=== PATIENT | female | born 1930 | race Caucasian/White ===

== ENCOUNTER 2019-01-13 10:26 | Inpatient (IN) | payer MEDICARE ==
[2019-01-13 11:31] LABS: Hemoglobin 12.2 g/dL (12.0-16.0); Mean Corpuscular HGB CONC 34.8 g/dL (32.0-36.0); Mean Corpuscular Hemoglobin 33.6 pg (27.0-31.0); Mean Corpuscular Volume 96.6 fL (78.0-98.0); Mean Platelet Volume 7.7 fL (7.4-10.4); Platelet Count 139 thou/uL (130-400); RBC Distribution Width 12.2 % (11.5-14.5); Red Blood Cell (RBC) Count 3.63 mill/uL (4.20-5.40); White Blood Cell (WBC) Count 10.7 thou/uL (4.8-10.8)
--- NOTE | 2019-01-13 11:31 | RAD ---
Chest AP view INDICATION: Altered mental status, sepsis and fall COMPARISON: July 19, 2015 FINDINGS: Lungs:Stable chronic lung changes Cardiac silhouette:Mild cardiomegaly Pulmonary vasculature:Normal Pleural spaces:No pleural effusion or pneumothorax is demonstrated. Upper abdomen:No abnormality seen. Osseous structures: No acute osseous abnormality. Additional findings:There is been interval placement of a loop recorder overlying the left chest wall . IMPRESSION: Mild cardiomegaly without evidence of cardiac decompensation. Stable chronic lung changes .
[2019-01-13 11:45] LABS: Band 15 % (5-11); MDiff Complete? YES; Metamyelocyte 2 % (0-0); Monocytes 1 % (0-10); Neutrophil 82 % (42-75); Platelet Morphology Comment Appears Adequate; RBC Morphology Normal
[2019-01-13 11:57] LABS: ALT (SGPT) 11 U/L (8-55); AST (SGOT) 26 U/L (5-34); Alkaline Phosphatase 125 U/L (40-110); Anion Gap 17 mmol/L (10-20); BUN (Urea Nitrogen) 28 mg/dL (9.8-20.1); Bilirubin, Total 1.2 mg/dL (0.2-1.2); Calc. Creatinine Clearance 0 mL/min (70-130); Calcium 9.2 mg/dL (7.8-10.44); Carbon Dioxide 21 mmol/L (23-31); Chloride 102 mmol/L (98-107); Estimated GFR-MDRD 24; Globulin 3.2 g/dL (2.4-3.5); Glucose 148 mg/dL (83-110); Potassium 4.1 mmol/L (3.5-5.1); Protein, Total 7.2 g/dL (6.0-8.3); Sodium 136 mmol/L (136-145)
[2019-01-13 11:59] LABS: CK (CPK) 106 U/L (29-168); Lipase 11 U/L (8-78)
[2019-01-13 12:05] LABS: Bacteria/HPF 4+ HPF (None Seen); Bilirubin Negative (Negative); Blood, Urine 2+ (Negative); Clarity Turbid (Clear); Glucose, Urine (Dipstick) Normal (Negative); Leukocyte 500 Leu/uL (Negative); Nitrite 2+ (Negative); Protein, Urine (Dipstick) 70 mg/dL (Neg-Trace); RBC/HPF Greater than 50 HPF (0-3); Squamous Epithelial 0-3 HPF (0-3); Urobilinogen Normal mg/dL (Less than 2); WBC/HPF Greater than 50 HPF (0-3)
[2019-01-13] MEDS ORDERED: Aspirin Chewable 81 MG TAB ONE (12:12)
[2019-01-13] MEDS ORDERED: Cefepime 2 GM VIAL ONE (12:12)
[2019-01-13 12:22] LABS: CKMB 0.9 ng/mL (0-6.6)
--- NOTE | 2019-01-13 12:43 | CT ---
CT Brain WO Con: 01/13/2019 11:32 AM CLINICAL HISTORY: Fall. IMAGING TECHNIQUE: Multiple CT images were obtained of the brain without IV contrast. COMPARISON: Prior exam dated March 12, 2016 FINDINGS: Brain: No acute infarct, hemorrhage or hydrocephalus is present. There is moderate chronic small ves adriana white matter ischemic change. Ventricles: Normal. No hydrocephalus.. Skull: Intact.. Visualized Paranasal sinuses: Clear.. Mastoid air cells:Clear. Extracranial soft tissues:Normal. IMPRESSION: No acute intracranial abnormality.
[2019-01-13 14:56] LABS: Lactic Acid 1.2 mmol/L (0.5-2.2)
[2019-01-13 15:00] LABS: Troponin I 0.097 ng/mL (< 0.028)
--- NOTE | 2019-01-13 23:35 | HP ---
CHIEF COMPLAINT: Feeling dizzy and weak, apparently yesterday she lost her balance. This was at night actually and she sat down on the floor and she was not able to get up and she had to spend all night on the floor. This morning, her nephew checked on her and he found her on the ground, but she was responsive and she was taken to the emergency room by EMS for further evaluation and help. She denied any a.m. fever. No chills. No nausea. No vomiting. No diarrhea. No abdominal pain. No chest pain. No shortness of breath, but for the last few days, she felt somewhat dizzy and weak. She did not go to her doctor, her primary doctor is Dr. Neri and surrogate decision maker is patient's son Pardeep, she was found to have fever, high fever in the emergency room of 104 and was found to be septic and she is getting admitted to the hospital for further management. She was started on cefepime and Levaquin by the emergency room physician. PAST MEDICAL HISTORY: Positive for: 1. Frequent UTIs. 2. History of hypertension. 3. Hypothyroidism. 4. Depression. PAST SURGICAL HISTORY: Hysterectomy. SOCIAL HISTORY: She denies any alcohol use, cigarette smoking, or any illicit drug use. FAMILY HISTORY: Mother of old age and father of [place] in his 70s. REVIEW OF SYSTEMS: She has frequent falls and she has 8-pound loss in the last several months, maybe 6. She has some constipation and otherwise all systems were reviewed and they were negative. PHYSICAL EXAMINATION: VITAL SIGNS: Blood pressure is 103/49, pulse is 97, O2 saturation is 100. HEENT: Her head is atraumatic and normocephalic. Eyes PERRLA. Sclerae are nonicteric. Oral mucosa is dry. NECK: Supple. LUNGS: Clear. HEART: S1, S2 normal. There is a systolic murmur at the left sternal border, approximately 3/6, mostly audible. ABDOMEN: Soft, nontender. Bowel sounds are present. No organomegaly. EXTREMITIES: No clubbing, cyanosis, or edema. NEUROLOGIC: She is able to answer all my questions properly. She follows my commands. She moves all 4 extremities. There is no any motor or sensory deficits. Cranial nerves are intact. LABORATORY DATA: Labs showed white count of 10.7, hemoglobin of 12.2, hematocrit 35.0, platelet count is 139,000. Sodium of 136, potassium 4.1, chloride 102, CO2 of 21, BUN 20, creatinine 1.99. Lactic acid 2.3 and repeated level is 1.2, glucose 148, alkaline phosphatase 125. Normal liver function tests with normal total bilirubin, AST and ALT. Ammonia is 15. CK 106, CK-MB 109, troponin I 0.047 and 0.097. BNP is 753.3. The rest of chemistry is within normal limits. TSH is , lipase 11. Urinalysis showed clarity turbid and 70 of protein, 20 of ketones, blood 2+, nitrates 2+, 500 leukocyte esterases, rbc's greater than 50 and wbc's greater than 50, 4+ bacteria. IMAGING: Chest x-ray was reviewed personally by me. It showed mild cardiomegaly without evidence of cardiac decompensation. She has some chronic lung changes on this x-ray. CT of the brain personally reviewed by me showed no acute infarct, no hemorrhage. There was some moderate chronic small-vessel white matter ischemic changes, otherwise was within normal limits. Electrocardiogram showed sinus tachycardia with questionable Q-waves in V1, V2 and V3. IMPRESSION: 1. Generalized weakness and dizziness for the last few days. Rule out subacute myocardial infarction. Her troponins are slightly elevated. We will get a 3rd set. We will keep her on aspirin. 2. Renal insufficiency. We do not know whether it is chronic or acute. We do not have any records on this lady in this hospital. We will start her on close observation. I am not planning to give her any fluids for now since her. 3. Brain natriuretic peptide is elevated. 4. Hypothyroidism. 5. Sepsis. Her temperature was up to 104. In the emergency room, she was started on Levaquin and cefepime. We will continue cefepime 1 g q.12 hours. We will check BMP tomorrow morning. We will do echocardiogram and we will continue her on levothyroxine as soon as we have the knowledge about the dose. 6. She will have deep venous thrombosis prophylaxis with sequential compression devices. 7. She is DO NOT RESUSCITATE. Job ID: [id number]
[2019-01-14] MEDS: Cefepime 1 GM in Sodium Chloride 0.9% 100 ML IVPB SCH ×2 (01:29→15:01)
[2019-01-14] MEDS ORDERED: Ondansetron ODT 4 MG TAB PO PRN (03:35)
[2019-01-14] MEDS ORDERED: Ondansetron PF 4 MG/2 ML Vial IVP PRN (03:35)
[2019-01-14] MEDS: Acetaminophen 325 MG TAB PO PRN ×2 (04:24→21:59)
[2019-01-14] MEDS: Sodium Chloride 0.9% 1,000 ML IV SCH ×2 (04:24→15:02)
--- NOTE | 2019-01-14 12:38 | PRG ---
DATE OF SERVICE: SUBJECTIVE: The patient is seen and examined at bedside. Extended family is present in the room during my visit. They are concerned about her falling multiple times during last 3 years. Those falls were not witnessed. The patient states that this was mainly balance problem during those episodes. Also, she says she does not have much appetite and she did not eat breakfast. She feels somewhat better. OBJECTIVE: VITAL SIGNS: Blood pressure is 125/57, pulse is 88, temperature is 98.6, respiratory rate is 21, O2 saturation is 92% on room air. HEENT: Head is atraumatic and normocephalic. Eyes are PERRLA. Sclerae are nonicteric. Oral mucosa is dry. NECK: Supple. LUNGS: Clear. HEART: S1 and S2 normal. There is a systolic murmur 3/6 at the left sternal border. ABDOMEN: Soft, nontender, nondistended. Bowel sounds are present. No organomegaly. EXTREMITIES: No clubbing, cyanosis, or edema. NEUROLOGIC: She follows my commands. She moves all 4 extremities. There are no any motor deficits. LABORATORY DATA: Pending. Troponin second set 0.097 and third set 0.100. Microbiology; urine culture, presumptive Escherichia coli. Two blood cultures, Escherichia coli. IMPRESSION: 1. Generalized weakness and dizziness with a recent fall 2 days ago. 2. Renal insufficiency. 3. Sepsis with Escherichia coli. Temperature down to 101 last night and normal this morning on cefepime. 4. Hypothyroidism. 5. Frequent falls. 6. Memory problems. PLAN: We will continue cefepime. We will get PT and OT. Continue IV fluids started by the third shift lieutenant MD. She shows some orthostatic hypotension. We are going to get renal ultrasound and MRI of the brain. Family is requesting neurology consultation for her frequent falls and memory problems. We will await until we have MRI results on her brain and we will obtain medical records from her primary care physician. Job ID: [id number]
[2019-01-14 12:47] LABS: #Lymphocytes 0.3 thou/uL (1.20-3.40); #Monocytes 0.6 thou/uL (0.11-0.59); #Neutrophils 9.4 thou/uL (1.40-6.50); %Basophils 0.1 % (0.0-1.0); %Eosinophils 0.1 % (0.0-10.0); %Monocytes 5.8 % (0.0-10.0); Hemoglobin 10.7 g/dL (12.0-16.0); Mean Corpuscular HGB CONC 34.2 g/dL (32.0-36.0); Mean Corpuscular Hemoglobin 33.4 pg (27.0-31.0); Mean Corpuscular Volume 97.6 fL (78.0-98.0); Mean Platelet Volume 8.1 fL (7.4-10.4); Platelet Count 122 thou/uL (130-400); RBC Distribution Width 12.4 % (11.5-14.5); Red Blood Cell (RBC) Count 3.21 mill/uL (4.20-5.40); White Blood Cell (WBC) Count 10.3 thou/uL (4.8-10.8)
[2019-01-14 13:26] LABS: Anion Gap 18 mmol/L (10-20); BUN (Urea Nitrogen) 36 mg/dL (9.8-20.1); Calc. Creatinine Clearance 19 mL/min (70-130); Calcium 8.4 mg/dL (7.8-10.44); Carbon Dioxide 15 mmol/L (23-31); Chloride 108 mmol/L (98-107); Estimated GFR-MDRD 24; Glucose 98 mg/dL (83-110); Potassium 3.9 mmol/L (3.5-5.1); Sodium 137 mmol/L (136-145)
--- NOTE | 2019-01-14 13:47 | ULT ---
US Renal Bilateral STANDARD: 01/14/2019 12:07 PM CLINICAL HISTORY: Chronic kidney disease. STUDY: Renal ultrasound COMPARISON: None. FINDINGS: Right kidney: Echogenicity: Normal. Masses/cysts: None. Hydronephrosis: None. Calcifications: None. Length: 9.8 cm Left kidney: Echogenicity: Normal. Masses/cysts: None. Hydronephrosis: None. Calcifications: 8 mm shadowing calcification in the midportion Length: 7.4 cm Limited visualization of the urinary bladder is unremarkable. IMPRESSION: Nonobstructing left renal calcification
--- NOTE | 2019-01-14 14:35 | MRI ---
EXAM: MRI of the brain without contrast HISTORY: Altered mental status with frequent falls and possible dementia COMPARISON: None TECHNIQUE: Multiplanar multisequence MR images were obtained of the brain without IV contrast. FINDINGS: Scattered foci of high T2/FLAIR signal in the subcortical and periventricular white matter are likely secondary to small vessel ischemic disease. Mild bitemporal atrophy is seen. No restricted diffusion. No hydronephrosis. No extra-axial fluid collection or intracranial hemorrhage. The expected flow voids are present. Corpus callosum, pituitary, and craniocervical junction are within normal limits. The calvarium and overlying soft tissues are unremarkable. The paranasal sinuses and mastoid air cells are well aerated. IMPRESSION: 1. No evidence of acute intracranial abnormality. 2. Mild bitemporal atrophy
[2019-01-15] MEDS ORDERED: Cefepime 1 GM in Sodium Chloride 0.9% 100 ML IVPB SCH (03:00)
[2019-01-15 04:26] LABS: #Lymphocytes 0.4 thou/uL (1.20-3.40); #Monocytes 0.9 thou/uL (0.11-0.59); #Neutrophils 8.2 thou/uL (1.40-6.50); %Eosinophils 0.1 % (0.0-10.0); %Lymphocytes 3.7 % (21.0-51.0); %Monocytes 9.7 % (0.0-10.0); %Neutrophils 86.6 % (42.0-75.0); Hemoglobin 10.2 g/dL (12.0-16.0); Mean Corpuscular HGB CONC 33.7 g/dL (32.0-36.0); Mean Corpuscular Hemoglobin 32.8 pg (27.0-31.0); Mean Corpuscular Volume 97.5 fL (78.0-98.0); Mean Platelet Volume 8.4 fL (7.4-10.4); Platelet Count 124 thou/uL (130-400); RBC Distribution Width 12.4 % (11.5-14.5); Red Blood Cell (RBC) Count 3.12 mill/uL (4.20-5.40); White Blood Cell (WBC) Count 9.4 thou/uL (4.8-10.8)
[2019-01-15 04:32] LABS: Anion Gap 16 mmol/L (10-20); BUN (Urea Nitrogen) 39 mg/dL (9.8-20.1); Calc. Creatinine Clearance 19 mL/min (70-130); Calcium 8.4 mg/dL (7.8-10.44); Carbon Dioxide 17 mmol/L (23-31); Chloride 107 mmol/L (98-107); Estimated GFR-MDRD 23; Glucose 139 mg/dL (83-110); Potassium 3.9 mmol/L (3.5-5.1); Sodium 136 mmol/L (136-145)
[2019-01-15] MEDS: Carvedilol 3.125 MG TAB PO SCH ×2 (08:15→16:56)
--- NOTE | 2019-01-15 11:46 | PRG ---
DATE OF SERVICE: 01/15/2019 SUBJECTIVE: The patient is seen and examined at the bedside. She is feeling significantly better. She just finished her PT. She was able to walk 80 feet, and she is somewhat tired after the PT, but overall she is feeling better. OBJECTIVE: VITAL SIGNS: Blood pressure is 172/79, pulse is 85, temperature is 98.1, respirations are 16, O2 saturation is 97% on room air. Her maximal temperature is 98.9 in the last 24 hours. HEENT: Her head is atraumatic and normocephalic. Eyes, PERRLA. Sclerae are nonicteric. Oral mucosa is still slightly dry. NECK: Supple. LUNGS: Few crackles at both bases with diminished breath sounds at both bases. HEART: S1 and S2, somewhat irregular. No S3. No S4. ABDOMEN: Soft, nontender, nondistended. EXTREMITIES: Still showing approximately 1 to 2+ peripheral edema. NEUROLOGICAL: She is alert and oriented x4. There are no any motor deficits. LABORATORY DATA: Labs showed white count of 9.4, hemoglobin of 10.2, hematocrit is 30.4, platelet count is 124,000. Chemistry; sodium of 136, potassium 3.9, chloride 107, CO2 of 17, BUN 39, and creatinine 2.02. Glucose is 139 and calcium is 8.4. BNP went up to 1560. Two troponins elevated at 0.0797 and 0.100. Microbiology is growing E. coli in blood x2. Cultures plus urine culture, pansensitive. IMPRESSION: 1. Sepsis with Escherichia coli. 2. Urinary tract infection with Escherichia coli, pansensitive. We are going to switch her to Rocephin from cefepime 1 g every 24 hours. 3. Renal insufficiency acute on chronic. We will have fitness and wellness instructor to evaluate her condition and give us his recommendations. 4. Hypothyroidism. 5. Frequent falls. 6. Congestive heart failure with valvular abnormalities, multiple. We will have ledger poster Dr. Amor to evaluate the patient, and we are going to start her on Coreg 3.125 mg twice a day, and fluids were stopped last night once we learned that her BNP went up to 1500. 7. Memory problems, she had MRI, which showed some bitemporal atrophy, which is most likely representing a memory problem clinically. 8. We will continue her DNR, a code status. Family was updated on the findings. Job ID: [id number]
--- NOTE | 2019-01-15 12:09 | CON ---
DATE OF CONSULTATION: REASON FOR CONSULTATION: Elevated creatinine. HISTORY OF PRESENT ILLNESS: An 88-year-old female with a history of baseline creatinine of 1.5 to 1.9 for the last 6 to 7 years, which progressively raised. The patient has a history of significant aortic stenosis and aortic regurgitation. The patient was admitted for dizziness and congestive heart failure. Her creatinine is hanging around 2.0. PAST MEDICAL HISTORY: History of UTI, hypertension, hypothyroidism, hysterectomy, history of congestive heart failure, history of aortic stenosis and aortic regurgitation. FAMILY HISTORY: Negative for ESRD. SOCIAL HISTORY: Noncontributory. No alcohol or drug use. REVIEW OF SYSTEMS: A 15-point review of system was performed and was negative except for positives noted above. GENERAL: HEAD: NECK: No swelling or lumps. NOSE: No epistaxis or discharge. EYES: No diplopia or pain. RESPIRATORY: CARDIOVASCULAR: GASTROINTESTINAL: /DICE TABLE PERSON: MUSCULOSKELETAL: No joint pain. NEUROPSYCHIATIC SYSTEMS: No suicidal ideation. No ideation. SKIN: Denies any rash or ulcer. CONSTITUTIONAL: No fever or chills. PHYSICAL EXAMINATION: See above. Awake, alert, in no acute distress. VITAL SIGNS: Afebrile, pulse 98, breathing 16, and blood pressure 145/75. GENERAL APPEARANCE AND MENTAL STATUS: Fair. HEAD/NECK: Normocephalic. Atraumatic. EYES: EOMI. No deformity. EARS: Clear. No ulcers. NOSE: Intact. No lesions. MOUTH: Clear. No discharge. THROAT: Clear. No exudate. LUNGS: Clear. No crackles. CARDIAC: S1, S2. No rub. ABDOMEN: Benign. Bowel sounds positive. GENITALIA/RECTUM: Berger absent. BACK/EXTREMITIES: Edema 0+. NEUROLOGICAL: Alert and motor intact. SKIN: LYMPHATICS: LABORATORY DATA: Hemoglobin 10.2. Creatinine 2.02. ASSESSMENT AND PLAN: 1. Chronic kidney disease stage 4 with acute kidney injury, most likely due to cardiorenal syndrome. Agree with cardiology consultation. Limit fluid intake. The patient can use Lasix 20 to 40 mg IV based on weight. If the weight increases, the patient . 2. Hypertension, stable. 3. Anemia, stable. Medication based on GFR appropriate. 4. Proteinuria. We will order random urine protein creatinine ratio. No indication for dialysis. Job ID: [id number]
[2019-01-15 12:59] LABS: Creatinine, Urine 48.66 mg/dL (47-110)
[2019-01-15] MEDS: cefTRIAXone\\ROCEPHIN 1 GM in Sodium Chloride 0.9% 100 ML IVPB SCH (13:21)
--- NOTE | 2019-01-16 00:31 | CON ---
DATE OF CONSULTATION: HISTORY OF PRESENT ILLNESS: Leny Linares is an 88-year-old white female, who has been evaluated by Dr. Lieberman in the past. He initially saw her in March 2016 when she was referred for evaluation of a TIA one and two months prior to that. Carotid Doppler showed a 50% to 69% left internal carotid artery stenosis. It was felt that it was not significant enough to have caused her TIA which consisted of slurring of her speech. She underwent a bubble study, which revealed no evidence of intracardiac shunting. She underwent placement of a LINQ in April 2016, and she has been followed since that time. On her monitor, she recently had an episode where her heart rate was slow with no P-waves, and it was felt that it could have been due to atrial fibrillation. The patient was not interested in anticoagulation. She also has had 5 or 6 falls over the last several months and would be a poor anticoagulation candidate. On the monitor since she has been here, she has had 3 to 4 seconds of supraventricular tachycardia. The patient denies any chest pains or shortness of breath. She apparently felt very weak, yesterday lost her balance and spent the night on the floor, was found by her nephew on the day of the admission-January 13. In the emergency room, she had a temperature of 104, felt to be septic. PAST MEDICAL HISTORY: Hypertension, hypothyroidism, depression, frequent urinary tract infections. PAST SURGICAL HISTORY: Hysterectomy. HOME MEDICATIONS: 1. Metoprolol/hydrochlorothiazide 50/25 q.a.m. 2. Levothyroxine 50 mcg daily. 3. Zolpidem 5 mg nightly p.r.n. 4. Tessalon Perles 100 mg b.i.d. ALLERGIES: NONE. SOCIAL HISTORY: She does not smoke or drink. FAMILY HISTORY: Father of myocardial infarction. REVIEW OF SYSTEMS: A 10-point review of systems is otherwise unremarkable. PHYSICAL EXAMINATION: VITAL SIGNS: Blood pressure 171/79, pulse of 89. HEENT: PERRL. NECK: Supple. CHEST: Clear. CARDIAC: S1 and S2 normal without any S3, S4, or murmurs. Carotid upstrokes normal without bruits. ABDOMEN: Normal bowel sounds without tenderness or organomegaly. EXTREMITIES: Revealed no clubbing, cyanosis, or edema. NEUROLOGIC: Grossly intact. SKIN: Reveals multiple ecchymoses on her arms and legs. LABORATORY DATA: EKG revealed sinus tachycardia with rate of 110 per minute with septal infarction with poor R-wave progression. Hemoglobin 10.2, hematocrit 30.4, white count 9400, platelets 124,000. Sodium 136, potassium 3.9, chloride 107, carbon dioxide 17, BUN 39, creatinine 2.02. BNP 1562.3. Troponin I 0.100. Echocardiogram revealed ejection fraction of 50% to 55% with mild left atrial enlargement, mitral annular calcification, moderate mitral regurgitation, moderate aortic stenosis, [id number] aortic regurgitation, [id number] tricuspid regurgitation. IMPRESSION: 1. Weakness and dizziness past several days, probably due to urinary tract infection. She has grown E coli in her urine. 2. Urinary tract infection. 3. Chronic kidney disease. 4. Hypothyroidism. 5. Hypertension. 6. Episodes of supraventricular tachycardia on the monitor. 7. Multiple falls at home. 8. Moderate aortic stenosis. RECOMMENDATIONS: Her LINQ will be interrogated to see if she has had any significant bradycardia or sinus pause that would explain the multiple falls that she has had over the last month or two. She is currently being treated for her urinary tract infection. Job ID: [id number] MTDD
[2019-01-16] MEDS: Zolpidem Tartrate 5 MG TAB PO SCH ×2 (00:47→20:21)
[2019-01-16 08:29] LABS: Anion Gap 13 mmol/L (10-20); BUN (Urea Nitrogen) 39 mg/dL (9.8-20.1); Calc. Creatinine Clearance 22 mL/min (70-130); Calcium 8.7 mg/dL (7.8-10.44); Carbon Dioxide 19 mmol/L (23-31); Chloride 109 mmol/L (98-107); Estimated GFR-MDRD 27; Glucose 109 mg/dL (83-110); Potassium 3.5 mmol/L (3.5-5.1); Sodium 137 mmol/L (136-145)
[2019-01-16] MEDS: Carvedilol 3.125 MG TAB PO SCH (09:02)
[2019-01-16] MEDS: Levothyroxine Sodium 50 MCG TAB PO SCH (09:02)
--- NOTE | 2019-01-16 10:41 | PRG ---
DATE OF SERVICE: 01/16/2019 SUBJECTIVE: The patient is seen and examined at the bedside. She looks better. She feels better. She participates in physical therapy. Her appetite is not that great. OBJECTIVE: VITAL SIGNS: Blood pressure is 184/87, pulse is 81, temperature is 98.0, respiratory rate is 16, and O2 saturation is 94% on room air. HEENT: Her head is atraumatic and normocephalic. Eyes are PERRLA. Sclerae are nonicteric. Oral mucosa is moister than what it was before. NECK: Supple. LUNGS: Breath sounds diminished at both bases. HEART: S1, S2, somewhat irregular. No S3, no S4. ABDOMEN: Soft, nontender, nondistended. EXTREMITIES: 1+ peripheral edema, similar bilateral. NEUROLOGIC: She follows my commands. She moves her all 4 extremities, but there is some memory issue noticeable when she is asked about the past or the names. She was not able to recall her doctor's name and some other issues with name. LABORATORY DATA: Sodium of 137, potassium 3.5, chloride 109, CO2 of 19, BUN 39, creatinine 1.76, glucose 109. Urine random total protein 39 and urine creatinine 48.66. IMPRESSION: 1. Sepsis with Escherichia coli secondary to urinary tract infection. 2. Urinary tract infection with Escherichia coli pansensitive on Rocephin, q.24 hours IV piggyback. 3. Renal insufficiency, acute on chronic. Nephrology was consulted. 4. Hypothyroidism. 5. Frequent falls. 6. Questionable congestive heart failure with multiple valvular abnormalities. The patient was seen by Dr. Amor for cardiology evaluation. Apparently, she had LINQ done recently and we are going to interrogate that to see whether this can explain her frequent falls. We will increase her Coreg to 6.25 mg twice a day since her blood pressure is running in 170s and 180s. 7. Memory problems with bitemporal atrophy on MRI, which is probably explaining on that problem. So plan is to continue her Rocephin. Continue PT. She is going to have a LINQ device interrogated. She had some SVTs, 2 runs during this hospitalization and most likely increasing the dose on Coreg will help. Job ID: [id number]
[2019-01-16] MEDS: cefTRIAXone\\ROCEPHIN 1 GM in Sodium Chloride 0.9% 100 ML IVPB SCH (12:12)
--- NOTE | 2019-01-16 16:14 | EKG ---
Test Reason : Blood Pressure : / mmHG Vent. Rate : 110 BPM Atrial Rate : 110 BPM P-R Int : 144 ms QRS Dur : 098 ms QT Int : 322 ms P-R-T Axes : 093 -44 071 degrees QTc Int : 435 ms Sinus tachycardia Left axis deviation Septal infarct , age undetermined Abnormal ECG Confirmed by BETSY TO, GUANAKITO ([id number]), online editor VICENTA GARCIA ([id number]) on 01/16/2019 4:13:03 PM Referred By: Confirmed By:GUANAKITO MEYER MD
[2019-01-16] MEDS: Carvedilol 6.25 MG TAB PO SCH (17:39)
--- NOTE | 2019-01-16 20:58 | PRG ---
DATE OF SERVICE: 01/16/2019 SUBJECTIVE: This is an 88-year-old female being seen for acute kidney injury. Patient denies any nausea, vomiting, or chest pain. OBJECTIVE: See above. The patient is awake and alert. VITAL SIGNS: Afebrile, pulse 75, breathing 16, blood pressure was 145/75. Awake, alert, in no acute distress. GENERAL APPEARANCE AND MENTAL STATUS: Fair. HEAD/NECK: Normocephalic. Atraumatic. EYES: EOMI. No deformity. EARS: Clear. No ulcers. NOSE: Intact. No lesions. MOUTH: Clear. No discharge. THROAT: Clear. No exudate. LUNGS: Clear. No crackles. CARDIAC: S1, S2. No rub. ABDOMEN: Benign. Bowel sounds positive. GENITALIA/RECTUM: Berger absent. BACK/EXTREMITIES: Edema 0+. NEUROLOGICAL: Alert and motor intact. SKIN: LYMPHATICS: LABORATORY DATA: Reviewed. ASSESSMENT AND PLAN: Acute kidney injury on chronic kidney disease, improved; hypertension, severe; anemia, stable. The patient's creatinine is at baseline. No indication for dialysis. I will sign off on this patient. Please reconsult as needed. Job ID: [id number]
[2019-01-17 08:44] LABS: Hemoglobin 11.7 g/dL (12.0-16.0); Mean Corpuscular HGB CONC 34.6 g/dL (32.0-36.0); Mean Corpuscular Hemoglobin 33.3 pg (27.0-31.0); Mean Corpuscular Volume 96.3 fL (78.0-98.0); Mean Platelet Volume 7.9 fL (7.4-10.4); Platelet Count 154 thou/uL (130-400); RBC Distribution Width 12.6 % (11.5-14.5); White Blood Cell (WBC) Count 8.1 thou/uL (4.8-10.8)
[2019-01-17] MEDS: Levothyroxine Sodium 50 MCG TAB PO SCH (08:47)
[2019-01-17] MEDS: Carvedilol 6.25 MG TAB PO SCH ×2 (08:48→16:28)
[2019-01-17 08:56] LABS: Anion Gap 10 mmol/L (10-20); BUN (Urea Nitrogen) 38 mg/dL (9.8-20.1); Calc. Creatinine Clearance 23 mL/min (70-130); Calcium 8.4 mg/dL (7.8-10.44); Carbon Dioxide 20 mmol/L (23-31); Chloride 111 mmol/L (98-107); Estimated GFR-MDRD 29; Glucose 131 mg/dL (83-110); Potassium 3.4 mmol/L (3.5-5.1); Sodium 138 mmol/L (136-145)
[2019-01-17] MEDS ORDERED: Potassium Chloride 20 MEQ TAB PO SCH (09:15)
[2019-01-17 11:03] LABS: Lymphocytes 12 % (21-51); MDiff Complete? YES; Monocytes 6 % (0-10); Neutrophil 80 % (42-75); Platelet Morphology Comment Appears Adequate; Reactive Lymphocytes 2 % (0-10)
[2019-01-17] MEDS: cefTRIAXone\\ROCEPHIN 1 GM in Sodium Chloride 0.9% 100 ML IVPB SCH (13:18)
[2019-01-17] MEDS ORDERED: Amlodipine 5 MG TAB PO SCH (16:00)
--- NOTE | 2019-01-17 16:14 | PRG ---
DATE OF SERVICE: 01/17/2019 SUBJECTIVE: The patient is seen and examined at bedside. The patient's son is present in the room of during my visit and he takes multiple notes after questioning me thoroughly. OBJECTIVE: VITAL SIGNS: Blood pressure is 172/76, temperature is 96.9, pulse 72, respiratory rate is 16, and O2 saturation is 96% on room air. GENERAL: She looks much better today. HEENT: Her head is atraumatic and normocephalic. Sclerae are nonicteric. Oral mucosa is moist. NECK: Supple. LUNGS: Breath sounds diminished at both bases. HEART: S1 and S2. Normal somewhat irregular. No S3. No S4. ABDOMEN: Soft and nontender. Bowel sounds are present. No organomegaly. EXTREMITIES: 1+ peripheral edema similar bilaterally. NEUROLOGIC: She is alert and oriented x4. There is no any motor or sensory deficits. LABORATORY DATA: Labs showed a white count of 8.1, hemoglobin of 11.7, hematocrit 33.7, and platelet count is 154,000. Sodium of 138, potassium 3.4, chloride 111, CO2 of 20, BUN is 38, creatinine 1.65, and calcium 8.4. IMPRESSION: 1. Sepsis with Escherichia coli secondary to urinary tract infection. 2. Urinary tract infection with Escherichia coli, which is pansensitive, currently on Rocephin IV piggyback 1 g every 24 hours. 3. Renal insufficiency, acute on chronic, improving. Nephrology following. 4. Hypothyroidism. 5. Frequent falls, LINQ device was interrogated and it showed multiple episodes of arrhythmia and Cardiology is following this issue. 6. Hypokalemia for supplementation. 7. 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 PLAN: Plan is to a start the process of arrangement [facility] with a PT or rehab, whatever she qualifies for. We are going to start her on small dose of amlodipine since her blood pressure is still not controlled, 2.5 mg once a day, one dose now then daily. I will continue Coreg 6.25 mg twice a day and she had some PATs and I hope Coreg will help to suppress those cardiac arrhythmias, although she is asymptomatic with those. Job ID: [id number]
--- NOTE | 2019-01-17 17:12 | PDOC.CPN ---
- Subjective Date: 01/17/19 Time: 17:11 Interval history: No new issues. No chest pain. - Review of Systems General: denies: fever/chills, weight/appetite/sleep changes, night sweats, fatigue Respiratory: denies: cough, congestion, shortness of breath, exercise intolerance Cardiovascular: denies: chest pain, palpitation, edema, paroxysmal nocturnal dyspnea, orthopnea Gastrointestinal: denies: nausea, vomiting, diarrhea, constipation, abd pain, GI bleeding Musculoskeletal: reports: stiffness. denies: pain, tenderness, swelling, arthritis/arthralgias Neurological: denies: numbness, syncope, seizure, weakness - Objective Allergies/Adverse Reactions: Allergies Allergy/AdvReac Type Severity Reaction Status Date / Time No Known Allergies Allergy Verified 01/13/19 16:26 Visit Medications: Current Medications Acetaminophen (Tylenol) 650 mg PO Q4H PRN PRN Reason: Headache/Fever or Mild Pain Last Admin: 01/14/19 21:59 Dose: 650 mg Amlodipine Besylate (Norvasc) 2.5 mg PO DAILY [facility], [facility]1983 Amlodipine Besylate (Norvasc) 2.5 mg PO 1600 [facility]1983 Stop: 01/17/19 18:00 Last Admin: 01/17/19 16:29 Dose: 2.5 mg Carvedilol (Coreg) 6.25 mg PO BID-[facility] Last Admin: 01/17/19 16:28 Dose: 6.25 mg Ceftriaxone Sodium 1 gm/ (Sodium Chloride) 100 mls @ 200 mls/hr IVPB Q24HR [facility], [facility] Last Admin: 01/17/19 13:18 Dose: 100 mls Levothyroxine Sodium (Synthroid) 50 mcg PO DAILY [facility] Last Admin: 01/17/19 08:47 Dose: 50 mcg Ondansetron HCl (Zofran Odt) 4 mg PO Q6H PRN PRN Reason: Nausea/Vomiting Ondansetron HCl (Zofran) 4 mg IVP Q6H PRN PRN Reason: Nausea/Vomiting Last Admin: 01/16/19 00:47 Dose: 4 mg Sodium Chloride (Flush - Normal Saline) 10 ml IVF Q12HR CATHLEEN Last Admin: 01/17/19 08:48 Dose: 10 ml Sodium Chloride (Flush - Normal Saline) 10 ml IVF PRN PRN PRN Reason: Saline Flush Last Admin: 01/16/19 12:13 Dose: 10 ml Zolpidem Tartrate (Ambien) 5 mg PO HSPRN CATHLEEN Last Admin: 01/16/19 20:21 Dose: 5 mg Vital Signs & Weight: Vital Signs Temp Pulse Pulse Resp BP BP BP 01/17/19 16:29 72 01/17/19 16:28 174/74 H 01/17/19 16:25 96.9 F L 77 16 180/80 H 01/17/19 16:00 18 01/17/19 15:04 74 172/76 H 01/17/19 12:00 96.9 F L 72 16 147/70 H 01/17/19 08:48 174/74 H 01/17/19 08:00 80 18 174/74 H Pulse Ox 01/17/19 16:29 01/17/19 16:28 01/17/19 16:25 96 01/17/19 16:00 01/17/19 15:04 01/17/19 12:00 96 01/17/19 08:48 01/17/19 08:00 Admit Weight 139 lb 3.2 oz Weight 139 lb 3.2 oz - Physical Exam General: alert & oriented x3 HEENT: mucus membranes moist Neck: supple neck Cardiac: regular rate and rhythm, systolic murmur Lungs: normal breath sounds Neuro: grossly intact Abdomen: active bowel sounds Extremities: no edema Skin: clear Musculoskeletal: no pain - Labs Result Diagrams: 01/17/19 08:25 01/17/19 08:25 Troponin/CKMB CK-MB (CK-2) 0.9 ng/mL (0-6.6) 01/13/19 11:31 Troponin I 0.100 ng/mL (< 0.028) H 01/13/19 17:48 - Telemetry Sinus rhythms and dysrhythmias: sinus rhythm Supraventricular conduction: atrial fibrillation - Assessment/Plan Assessment/Plan: 1. UTI 2. PSVT 3. Paroxysmal afib 4. Multiple falls 5. Moderate . PLAN: - Continue BB - She wants to be very conservative with her care, not interested in ablation.
[2019-01-18] MEDS: Carvedilol 6.25 MG TAB PO SCH ×2 (07:56→17:34)
[2019-01-18] MEDS: Levothyroxine Sodium 50 MCG TAB PO SCH (07:57)
[2019-01-18 08:42] LABS: Anion Gap 12 mmol/L (10-20); BUN (Urea Nitrogen) 32 mg/dL (9.8-20.1); Calc. Creatinine Clearance 24 mL/min (70-130); Calcium 8.5 mg/dL (7.8-10.44); Carbon Dioxide 23 mmol/L (23-31); Chloride 110 mmol/L (98-107); Estimated GFR-MDRD 31; Glucose 132 mg/dL (83-110); Potassium 3.6 mmol/L (3.5-5.1); Sodium 141 mmol/L (136-145)
[2019-01-18] MEDS ORDERED: Amlodipine 5 MG TAB PO SCH ×3 (09:00→12:45)
--- NOTE | 2019-01-18 12:38 | PRG ---
DATE OF SERVICE: 01/18/2019 SUBJECTIVE: The patient is seen and examined at the bedside and she seems to be doing quite well. She did her PT. Her appetite is getting better. OBJECTIVE: VITAL SIGNS: Blood pressure is 192/80, pulse is 74, temperature is 98.9, respiratory rate is 20, and O2 saturation is 98% on room air. HEENT: Head is atraumatic and normocephalic. Eyes are PERRLA. Sclerae are nonicteric. Oral mucosa is moist. NECK: Supple. LUNGS: Breath sounds diminished at both bases. HEART: S1, S2 normal. No S3. No S4. ABDOMEN: Soft, nontender, nondistended. EXTREMITIES: 1+ Peripheral edema similar bilateral on both lower extremities. NEUROLOGICAL: She follows my commands. She moves her all 4 extremities. LABORATORY DATA: Sodium of 141, potassium 3.6, chloride 110, CO2 of 23, BUN 32, creatinine 1.58, glucose 132, and calcium 8.5. IMPRESSION: 1. Sepsis with Escherichia coli secondary to urinary tract infection. 2. Urinary tract infection with Escherichia coli on Rocephin. 3. Renal insufficiency, acute on chronic, improving. 4. Hypothyroidism. 5. Frequent falls. The LINQ device was interrogated and Cardiology did not think that the episodes of arrhythmia recorded were causing her to fall. 6. Hypokalemia, supplemented, corrected. 7. 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 PLAN: The patient will be switched to p.o. antibiotic tomorrow and she will continue that for additional few days. She is started on amlodipine along with her Coreg for the blood pressure control and we will go up on her amlodipine to 5 mg once a day. Tomorrow the caser is going to work on her rehab arrangement. Job ID: [id number]
[2019-01-18] MEDS: cefTRIAXone\\ROCEPHIN 1 GM in Sodium Chloride 0.9% 100 ML IVPB SCH (13:43)
[2019-01-18] MEDS: hydrALAZINE 20 MG/ML VIAL SLOW IVP PRN (17:39)
[2019-01-19] MEDS: hydrALAZINE 20 MG/ML VIAL SLOW IVP PRN (01:23)
[2019-01-19] MEDS: Levothyroxine Sodium 50 MCG TAB PO SCH (08:37)
[2019-01-19] MEDS: Carvedilol 6.25 MG TAB PO SCH ×2 (08:37→17:08)
[2019-01-19] MEDS: Amlodipine 5 MG TAB PO SCH (08:37)
--- NOTE | 2019-01-19 12:15 | PDOC.HOSPP ---
- Subjective Encounter Date: 01/19/19 Encounter Time: 12:06 Subjective: alert, doing well - Objective Vital Signs & Weight: Vital Signs (12 hours) Temp Pulse Resp BP BP BP BP 01/19/19 11:55 98.2 F 66 20 01/19/19 09:05 155/78 H 147/77 H 148/71 H 01/19/19 08:37 75 160/82 H 01/19/19 07:49 97.5 F L 75 20 01/19/19 06:14 97.8 F 84 16 01/19/19 01:30 01/19/19 01:23 74 181/72 H 01/19/19 01:21 98.1 F 75 16 BP Pulse Ox 01/19/19 11:55 121/53 L 98 01/19/19 09:05 01/19/19 08:37 01/19/19 07:49 160/82 H 96 01/19/19 06:14 178/77 H 96 01/19/19 01:30 171/75 H 01/19/19 01:23 01/19/19 01:21 181/72 H 96 Weight Admit Weight 139 lb 3.2 oz Weight 141 lb 4 oz I&O: 01/18/19 01/19/19 01/20/19 06:59 06:59 06:59 Intake Total 240 Output Total 500 Balance -260 Result Diagrams: 01/17/19 08:25 01/18/19 07:42 Additional Labs: Accuchecks 01/19/19 05:20 POC Glucose 136 H Hospitalist ROS - Medication Medications: Active Medications Generic Name Dose Route Start Last Admin Trade Name Marvinq PRN Reason Stop Dose Admin Acetaminophen 650 mg 01/14/19 03:35 01/14/19 21:59 Tylenol PO 650 mg Q4H PRN Administration Headache/Fever or Mild Pain Amlodipine Besylate 5 mg 01/19/19 09:00 01/19/19 08:37 Norvasc PO 5 mg DAILY CATHLEEN Administration Carvedilol 6.25 mg 01/16/19 17:00 01/19/19 08:37 Coreg PO 6.25 mg BID-[facility] CATHLEEN Administration Hydralazine HCl 10 mg 01/18/19 12:21 01/19/19 01:23 Apresoline SLOW IVP 10 mg Q4H PRN Administration Hypertension Ceftriaxone Sodium 1 gm/ 100 mls @ 200 mls/hr 01/15/19 13:00 01/18/19 13:43 Sodium Chloride IVPB 100 mls Q24HR CATHLEEN Administration Levothyroxine Sodium 50 mcg 01/16/19 09:00 01/19/19 08:37 Synthroid PO 50 mcg DAILY CATHLEEN Administration Ondansetron HCl 4 mg 01/14/19 03:35 01/16/19 00:47 Zofran IVP 4 mg Q6H PRN Administration Nausea/Vomiting Sodium Chloride 10 ml 01/14/19 21:00 01/19/19 08:37 Flush - Normal Saline IVF 10 ml Q12HR CATHLEEN Administration Sodium Chloride 10 ml 01/14/19 12:19 01/16/19 12:13 Flush - Normal Saline IVF 10 ml PRN PRN Administration Saline Flush Zolpidem Tartrate 5 mg 01/14/19 12:15 01/16/19 20:21 Ambien PO 5 mg HSPRN CATHLEEN Administration - Exam Neck: no JVD Heart: RRR, no murmur Respiratory: CTAB Gastrointestinal: soft, normal bowel sounds Extremities: no edema Hosp A/P (1) Sepsis due to Escherichia coli (E. coli) Code(s): A41.51 - SEPSIS DUE TO ESCHERICHIA COLI [E. COLI] Status: Acute Qualifiers: Sepsis acute organ dysfunction status: without acute organ dysfunction Qualified Code(s): A41.51 - Sepsis due to Escherichia coli [E. coli] (2) UTI (urinary tract infection) Status: Acute Qualifiers: Urinary tract infection type: acute cystitis Hematuria presence: without hematuria Qualified Code(s): N30.00 - Acute cystitis without hematuria (3) Aortic stenosis Code(s): I35.0 - NONRHEUMATIC AORTIC (VALVE) STENOSIS Status: Acute Qualifiers: Cardiac valve disease etiology: nonrheumatic Qualified Code(s): I35.0 - Nonrheumatic aortic (valve) stenosis (4) PSVT (paroxysmal supraventricular tachycardia) Code(s): I47.1 - SUPRAVENTRICULAR TACHYCARDIA Status: Acute (5) Acute kidney failure Status: Acute Qualifiers: Acute renal failure type: unspecified Qualified Code(s): N17.9 - Acute kidney failure, unspecified (6) PAF (paroxysmal atrial fibrillation) Code(s): I48.0 - PAROXYSMAL ATRIAL FIBRILLATION Status: Acute (7) HTN (hypertension) Code(s): I10 - ESSENTIAL (PRIMARY) HYPERTENSION Status: Acute - Plan teansition to po antibx tomorrow cont coreg, amlodipine, levothyroxine
[2019-01-19] MEDS: cefTRIAXone\\ROCEPHIN 1 GM in Sodium Chloride 0.9% 100 ML IVPB SCH (12:56)
--- NOTE | 2019-01-19 14:30 | PDOC.CPN ---
- Subjective Date: 01/19/19 Time: 14:29 Interval history: She is doing well. She walked with PT and did well. No angina. - Review of Systems General: denies: fever/chills, weight/appetite/sleep changes, night sweats, fatigue Respiratory: denies: cough, congestion, shortness of breath, exercise intolerance Cardiovascular: denies: chest pain, palpitation, edema, paroxysmal nocturnal dyspnea, orthopnea Gastrointestinal: denies: nausea, vomiting, diarrhea, constipation, abd pain, GI bleeding Musculoskeletal: denies: pain, tenderness, stiffness, swelling, arthritis/ arthralgias Neurological: denies: numbness, syncope, seizure, weakness - Objective Allergies/Adverse Reactions: Allergies Allergy/AdvReac Type Severity Reaction Status Date / Time No Known Allergies Allergy Verified 01/13/19 16:26 Visit Medications: Current Medications Acetaminophen (Tylenol) 650 mg PO Q4H PRN PRN Reason: Headache/Fever or Mild Pain Last Admin: 01/14/19 21:59 Dose: 650 mg Amlodipine Besylate (Norvasc) 5 mg PO DAILY [facility] Last Admin: 01/19/19 08:37 Dose: 5 mg Carvedilol (Coreg) 6.25 mg PO BID-[facility] Last Admin: 01/19/19 08:37 Dose: 6.25 mg Hydralazine HCl (Apresoline) 10 mg SLOW IVP Q4H PRN PRN Reason: Hypertension Last Admin: 01/19/19 01:23 Dose: 10 mg Ceftriaxone Sodium 1 gm/ (Sodium Chloride) 100 mls @ 200 mls/hr IVPB Q24HR [facility] Last Admin: 01/19/19 12:56 Dose: 100 mls Levothyroxine Sodium (Synthroid) 50 mcg PO DAILY [facility] Last Admin: 01/19/19 08:37 Dose: 50 mcg Ondansetron HCl (Zofran Odt) 4 mg PO Q6H PRN PRN Reason: Nausea/Vomiting Ondansetron HCl (Zofran) 4 mg IVP Q6H PRN PRN Reason: Nausea/Vomiting Last Admin: 01/16/19 00:47 Dose: 4 mg Sodium Chloride (Flush - Normal Saline) 10 ml IVF Q12HR CATHLEEN Last Admin: 01/19/19 08:37 Dose: 10 ml Sodium Chloride (Flush - Normal Saline) 10 ml IVF PRN PRN PRN Reason: Saline Flush Last Admin: 01/16/19 12:13 Dose: 10 ml Zolpidem Tartrate (Ambien) 5 mg PO HSPRN CATHLEEN Last Admin: 01/16/19 20:21 Dose: 5 mg Vital Signs & Weight: Vital Signs Temp Pulse Resp BP BP BP BP 01/19/19 11:55 98.2 F 66 20 01/19/19 09:05 155/78 H 147/77 H 148/71 H 01/19/19 08:37 75 160/82 H 01/19/19 07:49 97.5 F L 75 20 01/19/19 06:14 97.8 F 84 16 BP Pulse Ox 01/19/19 11:55 121/53 L 98 01/19/19 09:05 01/19/19 08:37 01/19/19 07:49 160/82 H 96 01/19/19 06:14 178/77 H 96 Admit Weight 139 lb 3.2 oz Weight 141 lb 4 oz - Physical Exam General: alert & oriented x3 HEENT: mucus membranes moist Neck: supple neck Cardiac: regular rate and rhythm, no murmur Lungs: normal breath sounds Neuro: grossly intact Abdomen: active bowel sounds, soft, non-tender Extremities: no edema Skin: clear Musculoskeletal: no pain - Labs Result Diagrams: 01/17/19 08:25 01/18/19 07:42 Troponin/CKMB CK-MB (CK-2) 0.9 ng/mL (0-6.6) 01/13/19 11:31 Troponin I 0.100 ng/mL (< 0.028) H 01/13/19 17:48 - Telemetry Sinus rhythms and dysrhythmias: sinus rhythm - Assessment/Plan Assessment/Plan: 1. UTI 2. PSVT 3. Paroxysmal afib 4. Multiple falls 5. Moderate . PLAN: - Continue BB - She wants to be very conservative with her care, not interested in ablation. - May discharge at any time form cardiac perspective. - Will sign off. Please call with any questions.
[2019-01-19 15:17] VITALS: BMI 25.8
[2019-01-19] MEDS: Zolpidem Tartrate 5 MG TAB PO SCH (19:35)
[2019-01-20 07:56] VITALS: BP 150/70; TEMP 98.2
[2019-01-20] MEDS: Amlodipine 5 MG TAB PO SCH (08:49)
[2019-01-20] MEDS: Levothyroxine Sodium 50 MCG TAB PO SCH (08:49)
[2019-01-20] MEDS: Carvedilol 6.25 MG TAB PO SCH (08:49)
--- NOTE | 2019-01-20 08:51 | DIS ---
DATE OF ADMISSION: 01/13/2019 DATE OF DISCHARGE: 01/20/2019 PRIMARY CARE PROVIDER: Concha Neri MD. DISPOSITION: Discharged home. FINAL DIAGNOSES: Sepsis syndrome; bacteremia with Escherichia coli; urinary tract infection; acute kidney failure; hypertension; aortic stenosis; paroxysmal atrial fibrillation; paroxysmal supraventricular tachycardia. DISCHARGE MEDICATIONS: 1. Cefdinir 600 mg p.o. daily. 2. Coreg 6.25 mg p.o. b.i.d. 3. Amlodipine 5 mg daily. 4. Ambien 5 mg p.o. at bedtime p.r.n. 5. Levothyroxine 50 mcg p.o. daily. ALLERGIES: NONE. CODE STATUS: DNAR. DIET: Heart healthy. PENDING AT THE TIME OF DISCHARGE: Nothing. CONSULTATIONS: Dr. Sourav More, Nephrology; Dr. Myron Amor, Cardiology. PROCEDURES: None. HOSPITAL COURSE: The patient admitted through [facility] to [facility]. The patient presented with weakness. She was apparently found unresponsive on the floor. Her initial laboratory revealed a creatinine of 1.99, BUN of 28, sodium of 136, potassium of 4.1, lactic acid was 2.3, glucose of 148, alkaline phosphatase of 125. AST, ALT, and bilirubin normal. BNP was elevated at 753. Troponin was 0.47. Followup troponin 0.097, followup 0.110. Blood cultures and urine cultures were obtained. The patient was started on broad-spectrum antibiotics. Her blood culture and urine culture grew E. coli, pansensitive. The patient was treated with Rocephin IV for 7 days. She has been transitioned to Omnicef 600 mg a day. She was seen by Cardiology. She desired no intervention, etc., for her paroxysmal atrial fibrillation. She had an echocardiogram done, which showed an EF of 50% to 55% with [id number] aortic stenosis, regurgitation. As part of her workup, an MRI of the brain revealed no acute problem. Renal ultrasound revealed a nonobstructing left renal calcification. The patient did well during her hospital stay. She was initially thought to be a candidate for shelter facility, rehab. PT/OT was obtained. The patient is ambulating about the hospital. Currently, she is afebrile. Vital signs stable. Cardiorespiratory exam is normal. She is desirous of going home. She is being discharged for followup with her PCP, Dr. Neri in 7 days. Her final creatinine was 1.58, suggesting acute kidney injury on chronic kidney disease, stage 3. Job ID: [id number]
--- NOTE | 2019-01-22 02:10 | PQF ---
GIO CARLISLE COUNCIL C MD [id number] CLINICAL DOCUMENTATION CLARIFICATION FORM: POST DISCHARGE Addendum to original discharge summary date: ____ Late entry note date: __ DATE: 01/22/19 ATTN:Asher Geronimo Please exercise your independent, professional judgment in responding to the clarification form. Clinical indicators are provided on the bottom of this form for your review Please check appropriate box(s): [ ] Encephalopathy: Type: [ ] Acute [ ] Subacute [ ] Chronic Etiology: [ ] Hypertensive [ ] Metabolic [ ] Toxic [ ] Septic [ ] Unspecified [ ] Other (please specify) [ ] Transient Alteration of Awareness [ ] Other diagnosis [ ] Unable to determine In addition, please specify: Present on Admission (POA): [ ] Yes [ ] No [ ] Unable to determine For continuity of documentation, please document condition throughout progress notes and discharge summary. Thank You. CLINICAL INDICATORS - SIGNS / SYMPTOMS / LABS ED Notes 01/13 "Altered mental status" ED Notes 01/13 "patient presents for evaluation of fall" HP 01/13 "feeling dizzy and weak" Brain MRI 01/14 "Altered mental status with frequent falls and possible dementia " Brain MRI 01/14 "Mild bitemporal atrophy" PN 01/18 "Memory problem" RISK FACTORS ED Notes 01/13-88 years old female HP 01/13-HTN HP 01/13-Hypothyroidism HP 01/13-Sepsis PN 01/19-UTI PN 01/19-BC PN 01/18-Frequent fall PN 01/18-Hypokalemia TREATMENTS: Collected 01/13-Brain CT APR 28-Levaquin 750mg IV APR 28-Maxipime 1gm IV APR 28-Rocephin 1gm IV APR 28-IVF (This form is maintained as a part of the permanent medical record) 2014 [employer] All Rights Reserved [email or web address] [not provided] SHANTID
--- NOTE | 2019-01-22 02:14 | PQF ---
GIO CARLISLE COUNCIL C MD [id number] CLINICAL DOCUMENTATION CLARIFICATION FORM: POST DISCHARGE Addendum to original discharge summary date: ____ Late entry note date: __ DATE: 01/22/19 ATTN: Asher Geronimo Please exercise your independent, professional judgment in responding to the clarification form. Clinical indicators are provided on the bottom of this form for your review Please check appropriate box(s) to clarify if the following diagnosis has been ruled in or ruled out: Acute CO [ ] Ruled in diagnosis [ ] Continue to treat [ ] Resolved [ ] Ruled out diagnosis [ ] Cannot rule out diagnosis [ ] Other diagnosis [ ] Unable to determine In addition, please specify: Present on Admission (POA): [ ] Yes [ ] No [ ] Unable to determine For continuity of documentation, please document condition throughout progress notes and discharge summary. Thank You. CLINICAL INDICATORS - SIGNS / SYMPTOMS / LABS 01/13 "Rule out subacute myocardial infarction" 01/13 "Her troponin are slightly elevated" 01/13 "BNP is elevated" ED Notes 01/13 "patient presents for evaluation of fall" 01/13 "feeling dizzy and weak" ED Notes 01/13 "Indeterminate troponin" Labs Troponin: 01/13=0.047,0.097,0.100 RISK FACTORS ED Notes 01/13-88 years old female 01/13-HTN PN 01/18-Frequent fall PN 01/15-CHF Consult 01/15-Aortic stenosis with regurgitation Consult 01/15-CKD TREATMENTS Collected 01/14-Echo APR 28-IVF APR 28-Aspirin 81mg Oral APR 28-Metoprolol 1 tab Oral APR 28-Coreg 6.25mg Oral (This form is maintained as a part of the permanent medical record) 2014 [employer]. All Rights Reserved [email or web address] [not provided] MTDD
--- NOTE | 2019-01-22 02:19 | PQF ---
GIO CARLISLE COUNCIL C MD [id number] CLINICAL DOCUMENTATION CLARIFICATION FORM: POST DISCHARGE Addendum to original discharge summary date: ____ Late entry note date: __ DATE: 01/22/19 ATTN:Asher Geronimo Please exercise your independent, professional judgment in responding to the clarification form. Clinical indicators are provided on the bottom of this form for your review Please check appropriate box(s): Conflicting documentation was noted in the Medical Record, please clarify if patient is being treated/monitored for: [ ] Sepsis [ ] Sepsis syndrome [ ] Other diagnosis [ ] Unable to determine For continuity of documentation, please document condition throughout progress notes and discharge summary. Thank You. CLINICAL INDICATORS - SIGNS / SYMPTOMS/ LABS PN 01/14 "sepsis with E. Coli DS 01/20 "sepsis syndrome" DS 01/20 "Bacteremia with E.coli" HP 01/13 "was found to be septic" HP 01/13 "she was found to have fever high fever in the ER of 104" ED Notes 01/13 "Altered mental status" PN 01/15 "UTI with E.coli" RISK FACTORS ED Notes 01/13-88 years old female HP 01/13-HTN HP 01/13-Hypothyroidism PN 01/19-UTI PN 01/19-BC TREATMENT MAR 01/13-Levaquin 750mg IV MAR 01/13-Maxipime 1gm IV MAR 01/15-Rocephin 1gm IV APR 28-IVF DS 01/20-Urine and blood culture (This form is maintained as a part of the permanent medical record) 2014 [employer]. All Rights Reserved [email or web address] [not provided] MTDD
== END 2019-01-20 11:30 | disposition home or self-care (01) | DRG 872 ==
LOC: ERS 10:26 → 2NO 16:02 → T4-B 01-18 15:57
PROVIDERS: ADMIT Internal Medicine; ATTEND Internal Medicine
PROC: 4B02XSZ Measurement of Cardiac Pacemaker, External Approach (ICD-10-PCS; principal; 2019-01-17)
DX: A41.51 Sepsis due to Escherichia coli [E. coli] (principal); N39.0 Urinary tract infection, site not specified; I13.0 Hypertensive heart and chronic kidney disease with heart failure and stage 1 through stage 4 chronic kidney disease, or unspecified chronic kidney disease; Z66 Do not resuscitate; N18.4 Chronic kidney disease, stage 4 (severe); N17.9 Acute kidney failure, unspecified; I47.1 Supraventricular tachycardia; E03.9 Hypothyroidism, unspecified; F32.9 Major depressive disorder, single episode, unspecified; B96.20 Unspecified Escherichia coli [E. coli] as the cause of diseases classified elsewhere; I50.9 Heart failure, unspecified; I35.2 Nonrheumatic aortic (valve) stenosis with insufficiency; D63.1 Anemia in chronic kidney disease; E87.6 Hypokalemia; I48.0 Paroxysmal atrial fibrillation; Z91.81 History of falling; Z90.710 Acquired absence of both cervix and uterus; Z79.82 Long term (current) use of aspirin; Z79.890 Hormone replacement therapy; Z79.899 Other long term (current) drug therapy; Z86.73 Personal history of transient ischemic attack (TIA), and cerebral infarction without residual deficits; Z95.818 Presence of other cardiac implants and grafts; Z87.440 Personal history of urinary (tract) infections
CPT/HCPCS: 36415; 36416; 51701; 70450; 70551; 71045; 76770; 80048; 80053; 81003; 81015; 82140; 82550; 82553; 82570; 83605; 83690; 83880; 84156; 84443; 84484; 85025; 87040; 87077; 87086; 87149; 87186; 87804; 93005; 93306; 96365; 96366; 96367; A4353; J0360; J0692; J0696; J1956; J2405; J3490